=== PATIENT | male | born 1970 | race Caucasian/White ===

== ENCOUNTER 2021-04-24 05:52 | Day surgery (SDC) | payer OTHER ==
[2021-04-24 06:42] VITALS: BMI 31.8
[2021-04-24] MEDS ORDERED: ROPIVACAINE HCL 0.5% 30ML VIAL ONE (06:54)
[2021-04-24] MEDS ORDERED: MIDAZOLAM HCL 2 MG/2 ML SINGLE DOSE VIAL ONE (06:54)
[2021-04-24] MEDS ORDERED: PROPOFOL 20 ML ONE ×3 (07:03)
[2021-04-24] MEDS ORDERED: BACITRACIN 15 GM TUBE TOPICAL OINTMENT ONE (07:42)
[2021-04-24] MEDS ORDERED: DEXAMETHASONE SOD PHOSPHATE 10 MG/1 ML VIAL ONE (07:51)
[2021-04-24] MEDS ORDERED: ONDANSETRON 4 MG/2 ML VIAL ONE (09:47)
[2021-04-24] MEDS ORDERED: DEXAMETHASONE SOD PHOSPHATE 4 MG/1 ML VIAL ONE (09:47)
[2021-04-24] MEDS ORDERED: GLYCOPYRROLATE 0.2 MG/1 ML VIAL ONE (09:47)
[2021-04-24] MEDS ORDERED: TRANEXAMIC ACID 1000 MG/10 ML VIAL ONE (10:04)
[2021-04-24] MEDS ORDERED: KETOROLAC TROMETHAMINE 30 MG/1 ML VIAL ONE (10:04)
[2021-04-24] MEDS ORDERED: ACETAMINOPHEN INJECTION 100 ML IVPB ONE (10:54)
[2021-04-24] MEDS ORDERED: oxyCODONE HCL 5 MG TABLET PO PRN (10:56)
[2021-04-24] MEDS ORDERED: ONDANSETRON 4 MG/2 ML VIAL IVPUSH PRN (10:56)
[2021-04-24] MEDS ORDERED: ACETAMINOPHEN 1000 MG/100 ML VIAL (NON FORMULARY) IVPB PRN (10:57)
[2021-04-24] MEDS ORDERED: LACTATED RINGERS SOLUTION 1,000 ML IV SCH (11:00)
[2021-04-24 12:01] VITALS: TEMP 97.7
[2021-04-24 12:03] VITALS: BP 131/67; PULSE 74
== END 2021-04-24 12:20 | disposition home or self-care (01) ==
LOC: FASU 05:52
PROVIDERS: ATTEND Orthopaedic Surgery Sports Medicine
PROC: 0LS34ZZ Reposition Right Upper Arm Tendon, Percutaneous Endoscopic Approach (ICD-10-PCS; principal; 2021-04-24 08:50)
PROC: 0RBJ4ZZ Excision of Right Shoulder Joint, Percutaneous Endoscopic Approach (ICD-10-PCS; 2021-04-24 08:50)
DX: M24.111 Other articular cartilage disorders, right shoulder (principal); M75.41 Impingement syndrome of right shoulder
CPT/HCPCS: 94760; J0131; J1100